=== PATIENT | female | born 1950 | race Caucasian/White ===

== ENCOUNTER → 2024-01-14 08:23 | Outpatient (REF) | payer MEDICARE, OTHER, SELFPAY ==
[2024-01-14 10:13] LABS: Tegretol (Carbamazepine) 13.2 ug/ml (4-12)
[2024-01-14 10:16] LABS: Blood Urea Nitrogen 15 mg/dl (7-17); Calcium 9.6 mg/dl (8.4-10.2); Carbon Dioxide 25 mmol/L (22-30); Chloride 101 mmol/L (98-107); Glucose 98 mg/dl (70-99); Potassium 3.9 mmol/L (3.5-5.1); Sodium 134 mmol/L (135-145); eGFR > 60.00
== END ==
LOC: HWLAB 08:23
PROVIDERS: ATTENDING PHYSICIAN Specialist; FAMILY PHYSICIAN Family Medicine
DX: G40.209 Localization-related (focal) (partial) symptomatic epilepsy and epileptic syndromes with complex partial seizures, not intractable, without status epilepticus (principal)
CPT/HCPCS: 36415; 80048; 80156

== ENCOUNTER 2024-03-27 17:28 | Emergency (ER) | payer MEDICARE, OTHER, SELFPAY ==
[2024-03-27 17:42] VITALS: BP 123/71
[2024-03-27 18:15] VITALS: BMI 17.8
--- NOTE | 2024-03-27 19:43 | ED.GENMED ---
History of Present Illness
General
Chief Complaint: DVT/Possible Blood Clot
Source: patient
Exam Limitations: none
Time Seen by Provider: 03/27/24 19:30
History of Present Illness
History of Present Illness:
See MDM
Past History
Past History
ED Past Medical History: HTN, Hypercholesterolemia, Seizures and Other (TMJ)
ED Past Surgical History:
Social History
Tobacco: Former smoker
Alcohol: None
Personal:
Living: with family
Family History
Family History: Negative Diabetes, Hypertension or CAD
Phy Exam
Physical Exam
Physical Exam:
See MDM
Course
Orders/Labs/Results
Orders:
Orders
03/27/24 19:42
Apixaban [Eliquis] 5 mg PO ONCE ONE
Vital Signs
Initial and Last Documented VS:
Initial Vital Signs
Temp Pulse Resp BP Pulse Ox
98.2 F 88 16 123/71 98
03/27/24 17:42 03/27/24 17:42 03/27/24 17:42 03/27/24 17:42 03/27/24 17:42
Last Documented Vital Signs
Temp Pulse Resp BP Pulse Ox
98.2 F 88 16 123/71 98
03/27/24 17:42 03/27/24 17:42 03/27/24 17:42 03/27/24 17:42 03/27/24 17:42
MDM/Problems Addressed
Differential Diagnosis Includes:
HPI and MDM Narrative:
73-year-old female presenting for evaluation of DVT. Extensive DVT was seen on outpatient ultrasound. Blood work was performed as an outpatient as well. at bedside states that the patient has memory issues and she has not really had any
complaints. He just had a hip replacement and he is the primary caregiver. He states that he was having more trouble getting around and she has been more sedentary recently. Patient denies chest pain, shortness of breath or leg pain
On exam, there is very minimal edema noted to her left leg. There is no evidence of cerulea dolens. No tenderness elicited to palpation. Distal pulses intact
Physical exam
General: Well appearing and non-toxic
HEENT: protecting airway
Neck: appears supple
CV: No evidence of cyanosis
Resp: No accessory muscle use
Abd: Non-distended
Extremities: Mild edema noted to left leg. No tenderness to palpation of calf or thigh. Distal pulses intact
Neuro: alert
Psych: Normal affect
Skin: Intact
Problems Addressed including Acute and Chronic Conditions affecting care:
1. Left leg DVT
Acuity: acute
Prognosis: stable
Details: No evidence of cerulea dolens. Will discuss case with vascular surgery
Updates
7:40 PM Case discussed with vascular surgery in regards to thrombolysis or not. Given that she has minimal to no complaint and there is no evidence of cerulea dolens, he indicated there is no significant benefit for thrombolysis as this would not
necessarily decrease the PE risk. I relayed this to patient and at bedside. They are very comfortable with starting Eliquis and following up with PCP. We discussed compression stockings. Patient given a coupon for first 30 days free
Eliquis. We discussed strict return precautions such as shortness of breath, chest pain or worsening swelling
Differential Diagnosis (but not limited to): DVT, calf strain
Drug therapy (if applicable): OTC meds, please see d/c instruction regarding Rx drugs
Amount and/or Complexity of Data Reviewed
Clinical info obtained from: Patient. states that the swelling was noted about 1 week ago. She has been more sedentary after his recent hip surgery
External data reviewed: Outpatient ultrasound lab work done today. Extensive DVT noted
Labs I independently reviewed (but not limited to): White blood cell count normal, creatinine normal
Radiology: Ultrasound report reviewed
Pulse Ox: not hypoxic
EKG independently reviewed: N/A
[employer]ic: N/A
Critical Care: N/A
Risk of Complication:
Social Determinants of health: Good social support
Discussed with other providers: vascular surgery
Escalation of Care includes Admit/Obs: After being observed in the Emergency Department, pt stable for discharge.
Occasional wrong word or 'sound a like' substitutions may have occurred due to the inherent limitations of voice recognition software. Read the chart carefully and recognize, using context, where substitutions have occurred.
*Critical Care Note
Total Time (30-74mins, 75-104mins- exclusive of procedures): Not Applicable
ED Attending Note
-
Portions of this chart may have been created with voice recognition software.� Occasional wrong word or��sound alike� substitutions may have occurred due to the inherent limitations of voice recognition software.
Discharge Plan
Departure
Patient Disposition: Home (Routine Discharge)
Date of Disposition: 03/27/24
Time of Disposition: 19:49
Patient with high blood pressure during this ER visit?: No
Discharge Problem:
DVT (deep venous thrombosis)
Instructions: Deep Vein Thrombosis (Blood Clots in the Legs) (DC)
Prescriptions:
New
Eliquis 5 mg tablet
5 mg PO BID Qty: 70 0RF
Rx Instructions:
10 mg BID for the first week. 5 mg BID after 1st week.
No Action
simvastatin 20 MG tablet
20 mg PO QPM
calcium carbonate-vitamin D3 1 EACH tablet
1 ea PO DAILY
losartan [Cozaar] 100 MG tablet
100 mg PO DAILY
carbamazepine [Tegretol XR] 400 MG tablet extended release 12 hr
400 mg PO BID Qty: 60 3RF
levetiracetam 250 MG tablet
1,000 mg PO BID 30 Days Qty: 240 2RF
Referrals:
Essie Ward DO [Family Provider] -
Activity Restrictions/Additional Instructions:
You have a large blood clot in your left leg. I started the first 4 weeks of a blood thinner called Vianey. Please call your doctor first thing tomorrow morning. Please return for any shortness of breath, chest pain or any worsening leg
swelling. Please start wearing a compression stocking in your left leg.
Since I am putting you on a blood thinner, please avoid NSAIDs such as Motrin, Advil, naproxen, aspirin, etc.
Please return for any worsening symptoms.
You may return at any time if you have further concerns.
Thank you for choosing [facility].
Interventions
Interventions:
*Risk Screen - Suicide Last Done: 03/27/24 18:15
*General Assessment Last Done: 03/27/24 18:15
*Neglect/Abuse Screening Last Done: 03/27/24 18:15
*ED COVID-19 Vaccine History Last Done: 03/27/24 17:42
ED- Cardiac Assessment Last Done: 03/27/24 18:15
ED- Pulmonary Assessment Last Done: 03/27/24 18:15
ED-Peripheral Vascular Assessment Last Done: 03/27/24 18:15
ED-Skin Assessment Last Done: 03/27/24 18:15
Discharge Date and Time
Print Language: MALAGASY
[2024-03-27] MEDS: ELIQUIS 5 MG PO ×2 (19:47→19:54)
[2024-03-27 20:05] VITALS: BP 137/89
== END 2024-03-27 20:05 | disposition home or self-care (01) ==
LOC: EMR 17:28
PROVIDERS: EMERGENCY PHYSICIAN Student in an Organized Health Care Education/Training Program; FAMILY PHYSICIAN Family Medicine
DX: I82.402 Acute embolism and thrombosis of unspecified deep veins of left lower extremity (principal); I10 Essential (primary) hypertension; E78.00 Pure hypercholesterolemia, unspecified; R56.9 Unspecified convulsions; M26.609 Unspecified temporomandibular joint disorder, unspecified side; Z87.891 Personal history of nicotine dependence
CPT/HCPCS: 99283; 36415; 73610; 80053; 83880; 85025; 93971

== ENCOUNTER → 2024-07-18 09:49 | Outpatient (REF) | payer MEDICARE, OTHER, SELFPAY ==
[2024-07-18 12:45] LABS: % Basophils 0.8 % (0-2); % Eosinophils 2.6 % (0-6); % Immature Granulocytes 0.3 % (0-0.5); % Lymphocytes 30.2 % (20.5-51.1); % Neutrophils 57.1 % (42.2-75.2); Absolute Eosinophils 0.1 10^3/uL (0-0.7); Absolute Lymphocytes 1.2 10^3/uL (1.2-3.4); Absolute Monocytes 0.4 10^3/uL (0.1-0.6); Absolute Neutrophils 2.2 10^3/uL (1.4-6.5); Hematocrit 35.6 % (37.0-47.0); Hemoglobin 12.3 g/dL (12.0-16.0); Mean Corp Hgb Conc. 34.6 g/dL (33.0-37.0); Mean Corpuscular Hgb 33.4 pg (27.0-31.0); Mean Corpuscular Volume 96.7 fL (81.0-99.0); Mean Platelet Volume 9.8 fL (7.4-10.4); Nucleated Red Blood Cells % 0 %; Platelet Count 245 10^3/uL (130-400); Red Blood Cell Count 3.68 10^6/uL (4.20-5.40); Red Cell Dist. Width 13.1 % (11.5-14.5); White Blood Cell Count 3.9 10^3/uL (4.8-10.8)
[2024-07-18 13:26] LABS: D-Dimer 0.37 ug/mlFEU (0.00-0.50)
== END ==
LOC: HWLAB 09:49
PROVIDERS: ATTENDING PHYSICIAN Internal Medicine Hematology & Oncology; FAMILY PHYSICIAN Family Medicine; REFERRING PHYSICIAN Specialist
DX: I82.401 Acute embolism and thrombosis of unspecified deep veins of right lower extremity (principal)
CPT/HCPCS: 36415; 85025; 85379

== ENCOUNTER 2024-07-28 21:21 | Inpatient (IN) | payer MEDICARE, OTHER, SELFPAY ==
[2024-07-28] VITALS (8 sets, daily range): BP systolic 111–145; BP diastolic 69–111
--- NOTE | 2024-07-28 16:57 | ED.GENMED ---
History of Present Illness
General
Chief Complaint: Fall
Source: spouse
Time Seen by Provider: 07/28/24 16:44
History of Present Illness
History of Present Illness:
74yoF with a history of seizures, dementia, hypertension, hyperlipidemia, and DVT presenting via EMS for evaluation after a fall. Patient has dementia at baseline and history is provided by at bedside. states patient fell in the
living room today around 9 AM. He denies any seizures or loss of consciousness. He does not think she hit her head. He was able to get her up less than a minute after the fall. Patient was unable to ambulate after the fall and seem to be having
pain in her right knee prompting him to call EMS. Mental status is currently at baseline. Patient had a recent right humeral fracture at the end of May 2024 which was treated with a sling. The sling was removed 1 week ago by [facility]. She was taken off of Eliquis 3 days ago by hematology.
Past History
Past History
ED Past Medical History: HTN, Hypercholesterolemia, Seizures and Other (TMJ)
ED Past Surgical History:
Social History
Tobacco: Former smoker
Alcohol: None
Personal:
Living: with family
Family History
Family History: Negative Diabetes, Hypertension or CAD
Phy Exam
General Physical Exam
General Presentation: no apparent distress
General age: appears stated age
General Skin: warm and dry
General Habitus: normal and elderly
General Mental: alert
ENT Exam
ENT Exam: normocephalic
Pulmonary Exam
Pulmonary Exam: lungs clear, no respiratory distress, no rales, chest non tender and no crackles
Gastrointestinal Exam
Gastrointestinal Exam: non tender, soft and non distended
Neurological Exam
Neurological Exam: alert
Elle Coma Scale
Eye Opening: Spontaneous
Verbal Response: Confused
Motor Response: Obeys Commands
GCS Total Score: 14
Musculoskeletal Exam
Musculoskeletal Exam: other (No deformity noted on exam. +Diffuse tenderness to R hip. Pain elicited with passive ROM of the R hip.)
Skin Exam
Skin Exam: normal color and warm/dry
Psychiatric Exam
Psychiatric Exam: normal mood/affect
Course
Orders/Labs/Results
Orders:
Orders
07/28/24 Dinner
Regular
At Your Request: Non-Participating
Does patient need a safe tray?: Yes
07/28/24 16:55
CT Cervical Spine W/o Iv Contr Urgent
Comment:
Reason For Exam: fall, dementia
CT Head W/o Iv Contrast Urgent
Comment:
Reason For Exam: fall
CR Elbow - Right Min 3 Views Urgent
Comment:
Reason For Exam: fall, pain
CR Femur - Right Min 2 Vw Urgent
Comment:
Reason For Exam: fall, R leg pain
CR Humerus - Right Min 2 View* Urgent
Comment:
Reason For Exam: fall, recent humeral fracture
CR Knee- Right 4 Or More View* Urgent
Comment:
Reason For Exam: fall, pain
CR Pelvis - 1 Or 2 Views Urgent
Comment:
Reason For Exam: fall, R hip pain
07/28/24 19:13
CT Pelvis W/o Iv Contrast Urgent
Comment:
Reason For Exam: Questionable R hip fracture on xray
07/28/24 20:30
Type+Screen Urgent
Complete Blood Count/With Diff Urgent
Comprehensive Metabolic Panel Urgent
07/28/24 21:00
ABO2 Urgent
BBK Wristband Number:
Associate notified that ABO2 has been ordered: [id number]
Date: 07/28/24
Time: 20:57
Ordnance Technician ID: [id number]
07/28/24 21:01
Admit/Transfer Patient As Directed
Co-Sign Provider:
Level of Care: Inpatient admission
Assign to:: Medical/Surgical
Physician / Group: hospitalist
Diagnosis: Fracture of right femoral neck closed
Reason for Hospitalization: femoral neck fracture
Expected length of stay greater than two midnights?: Yes
ELOS- Estimated Length of Stay in days: 2
I certify the patient meets the requirements for IP care: Yes
PRN Pain Medication Management As Directed
May give lesser potent ordered pain med per pt: Yes
preference::
Protocol:: Medication orders for pain may be administered in a
manner that supports deferring to patient preference
when the pt is:
- Requesting an ordered lesser potent pain medication.
Least to most potent pain medications are defined
as: acetaminophen < NSAID < tramadol < opioids
(morphine, oxycodone, hydromorphone).
- Requesting a lesser dose of the same medication IF
ORDERED.
- Requesting a less intrusive route of administration
if both routes are prescribed by the provider (PO <
IV).
07/28/24 21:02
Code Status As Directed
Resuscitation Status: Full Code
07/28/24 22:00
Atorvastatin [Lipitor] 20 mg PO HS
07/28/24 22:10
Docusate Sodium [Colace] 100 mg PO BID
Magnesium Hydroxide [Milk of Magnesia] 30 ml PO DAILYPRN PRN
Oxycodone [Roxicodone] 5 mg PO Q4HPRN PRN
Sennosides [Senokot] 17.2 mg PO BID
Tamsulosin [Flomax] 0.4 mg PO DAILYPRN PRN
07/28/24 22:10
Activity As Directed
Activity Level: With Assistance
Bladder Scan As Directed
Follow Bladder Retention/Intermittent Cath Algorithm?: Yes
PRN if no void in __ hours: 6
Comment: if not voiding 6 hrs upon arrival to floor, bladder scan & follow algorithm
Intake/ Output As Directed
Frequency: Per unit guidelines
Pneumatic Compression Sleeves As Directed
Type: Knee high
Straight Cath As Directed
Frequency: Per Retention Algorithm
Additional Instructions: straight cath as needed per acute urinary retention algorithm for 24 hrs
Additional Instructions: for bladder scan greater than 400 mL
Vital Signs As Directed
Frequency: Per unit guidelines
Pt Eval And Treat Routine
Activity Level: With Assistance
DX Deep Vein Thrombosis Video Routine
07/29/24 00:00
Acetaminophen [Tylenol] 650 mg PO Q4HWA
07/29/24 08:00
Carbamazepine Extended Release [Tegretol Xr (Extended Release)] 400 mg PO BID
Levetiracetam [Keppra] 1,000 mg PO DAILY
Losartan [Cozaar] 100 mg PO DAILY
Sertraline HCl [Zoloft] 50 mg PO DAILY
07/29/24 22:00
Levetiracetam [Keppra] 1,500 mg PO HS
Abnormal Lab Results
07/28/24
20:30
RBC 3.75 L 10^6/uL
(4.20-5.40)
Hct 34.7 L %
(37.0-47.0)
MCH 33.3 H pg
(27.0-31.0)
Absolute Lymphs (auto) 1.0 L 10^3/uL
(1.2-3.4)
Lymphocytes % 15.7 L %
(20.5-51.1)
Monocytes % 9.9 H %
(1.7-9.3)
Carbon Dioxide 18 L mmol/L
(22-30)
Glucose 109 H mg/dl
(70-99)
07/28/24 20:30
07/28/24 20:30
Vital Signs
Initial and Last Documented VS:
Initial Vital Signs
Pulse Resp Pulse Ox
95 24 99
07/28/24 15:06 07/28/24 15:06 07/28/24 15:06
Last Documented Vital Signs
Temp Pulse Resp BP Pulse Ox
98.9 F 116 22 145/88 96
07/28/24 22:31 07/28/24 22:31 07/28/24 22:31 07/28/24 22:31 07/28/24 22:31
MDM/Problems Addressed
Differential Diagnosis Includes:
74yoF here after a fall. Patient unable to ambulate after the fall. Hx of dementia and history is limited. Hx of recent humeral fracture. VSS. There is reproducible tenderness to the R hip and pain with passive ROM. RLE is neurovascularly intact.
Differential diagnosis includes but is not limited to: Fracture, contusion, sprain
Initial ED plan: Check right shoulder/humeral x-rays, right hip/femur/knee x-rays, and CT head/cervical spine.
*Critical Care Note
Total Time (30-74mins, 75-104mins- exclusive of procedures): Not Applicable
Update Note
Update Note:
Hip x-rays show a questionable fracture. CT pelvis was obtained which confirms a nondisplaced right femoral neck fracture with minor impaction. Patient admitted for further evaluation and management. updated at bedside.
ED Attending Note
-
Portions of this chart may have been created with voice recognition software.� Occasional wrong word or��sound alike� substitutions may have occurred due to the inherent limitations of voice recognition software.
Discharge Plan
Departure
Patient Disposition: Admit
Date of Disposition: 07/28/24
Time of Disposition: 20:23
Presentation/result/management discussed w/ accepting MD/DO: Hospitalist
Discharge Problem:
Fracture of femoral neck, right, closed
Interventions
Interventions:
*Risk Screen - Suicide Last Done: 07/28/24 15:12
*General Assessment Last Done: 07/28/24 15:12
*Neglect/Abuse Screening Last Done: 07/28/24 15:12
ED- Fall Risk Assessment Last Done: 07/28/24 21:54
*ED COVID-19 Vaccine History Last Done: 07/28/24 15:12
*Nursing Disposition Last Done: 07/28/24 21:54
ED-Musculoskeletal Assessment Last Done: 07/28/24 15:18
ED- Neurological Assessment Last Done: 07/28/24 15:18
ED-Skin Assessment Last Done: 07/28/24 15:18
Discharge Date and Time
Discharge Date/Time: 07/28/24 21:56
[2024-07-28 20:36] LABS: % Basophils 0.3 % (0-2); % Eosinophils 0.2 % (0-6); % Immature Granulocytes 0.5 % (0-0.5); % Lymphocytes 15.7 % (20.5-51.1); % Monocytes 9.9 % (1.7-9.3); % Neutrophils 73.4 % (42.2-75.2); Absolute Monocytes 0.6 10^3/uL (0.1-0.6); Absolute Neutrophils 4.5 10^3/uL (1.4-6.5); Hematocrit 34.7 % (37.0-47.0); Hemoglobin 12.5 g/dL (12.0-16.0); Mean Corpuscular Hgb 33.3 pg (27.0-31.0); Mean Corpuscular Volume 92.5 fL (81.0-99.0); Mean Platelet Volume 9.2 fL (7.4-10.4); Nucleated Red Blood Cells % 0 %; Platelet Count 211 10^3/uL (130-400); Red Blood Cell Count 3.75 10^6/uL (4.20-5.40); Red Cell Dist. Width 12.9 % (11.5-14.5); White Blood Cell Count 6.1 10^3/uL (4.8-10.8)
--- NOTE | 2024-07-28 21:02 | HPS.HSE ---
Family Physician
-
Family Physician: Essie Ward
Chief Complaint
-
Fall
History of Present Illness
Is a 74-year-old female with past medical history of dementia, tremors, hypertension, hyperlipidemia, history of seizure disorder on antiepileptic drugs and a prior DVT who presents to the emergency department following a mechanical fall at home.
Spouse was at bedside and was able to provide history as patient cannot provide any history. The patient had a fall at around 9 AM in the living room. Is seen had falls before and has seen multiple seizure episode. Spouse reported that there was
no evidence by him of any seizures. He was able to get her up immediately after the fall but patient was unable to ambulate thereafter and seem to be having pain on the right side. EMS was called.
Patient had no change in mental status. She had prior or fall and a right humeral fracture at the end of May status post treatment with a sling and sling was DC'd at [facility] orthopedic 1 week ago. Eliquis was discontinued 3 days ago by
hematology.
In the emergency department she was afebrile, blood pressure was 113/90 with a pulse of 108 oxygen saturation of 90% on room air. Hemoglobin was 12.5 and unchanged. Chemistries are pending. She had multiple x-rays and the findings were only seen
on CT of the pelvis which showed a nondisplaced femoral neck fracture on the right with small bilateral hemarthrosis. Minor impaction.
Medical History
Past Medical History
Past Medical History: Reports Dementia, HTN and Other (Seizures)
Additional Past Medical History:
H/O DVT now off AC
Past Surgical History: Reports
Social History
Unable to obtain full social history at this time due to: Dementia
Tobacco: Non-smoker
Alcohol: None
Drug: None
Personal:
Living: With Family
Employment: Retired
Family History
Family History: Not pertinent
Allergies / Home Medications
Allergies reflects when Allergies were last updated in [employer]
Home Medications with original date entered in [employer]
Allergy/Medication List:
Allergies
Allergy/AdvReac Type Severity Reaction Status Date / Time
No Known Allergies Allergy Verified 03/27/24 17:43
Home Medications
losartan 100 mg tablet (Cozaar) 100 mg PO DAILY 12/16/21
carbamazepine 400 mg tablet,extended release,12 hr (Tegretol XR) 400 mg PO BID #60 tabs 12/18/21
atorvastatin 20 mg tablet 20 mg PO HS 07/28/24
levetiracetam 1,000 mg tablet 1,000 mg PO DAILY 07/28/24
levetiracetam 1,000 mg tablet 1,500 mg PO HS 07/28/24
sertraline 50 mg tablet 50 mg PO DAILY 07/28/24
Review of Systems
-
History Source: Family
Constitutional: Reports No Symptoms
EENT: Reports No Symptoms
Respiratory: Reports No Symptoms
Cardiac: Reports No Symptoms
Abdomen/GI: Reports No Symptoms
: Reports No Symptoms
Musculoskeletal: Reports Joint Pain
Skin: Reports No Symptoms
Neurological: Reports No Symptoms
Endocrine: Reports No Symptoms
Hematologic/Lymphatic: Reports No Symptoms
Psych: Reports No Symptoms
Physical Exam
Vital Signs
Vital Signs
Temp Pulse Resp BP Pulse Ox
97.8 F 101 18 113/92 99
07/28/24 15:12 07/28/24 20:32 07/28/24 20:32 07/28/24 20:32 07/28/24 20:32
Physical Exam
General: No Apparent Distress
HEENT: NormoCephalic, Anicteric, Moist mucous membranes and Atraumatic
Respiratory: Clear
Cardiac: S1/S2 and Regular Rhythm
Breast: Deferred by me
GI: Soft, Non Tender, Non Distended and Normal Bowel Sounds
Rectal: Deferred by Provider
Genito-urinary: Deferred by me
Musculoskeletal: No Clubbing, No Cyanosis and No Edema
Skin: Warm
Neuro: Awake, Alert and Nonfocal/grossly intact
Hematologic/Lymphatic: No Lymphadenopathy
Psych: Calm
Laboratory Results
-
07/28/24 20:30
Data Reviewed
-
Diagnostic Radiology: Image Personally Visualized and interpreted and Report Reviewed by me
CT Scan: Report Reviewed by me
Lab Data: Labs Reviewed by me
Old Records: Reviewed
Impression/Plan
-
IMPRESSION:
Mechanical fall at home. No LOC. No seizure like activity. Did not strike head. Off Eliquis for DVT 3 days ago. Currently with normal mental status. Vitals, CBC and exam mostly unremarkable. Non-displaced R femoral neck fracture with minor
impaction.
PLAN:
1. Hip Fracture
- admit to med surg
- pain control, acetaminophen q 6 scheduled per protocol.
- if uncontrolled, consider RTC tramadol as patient cannot ask for pain meds
- DVT PPX with lovenox sq
- contacted Ortho. No specific recommendations for now, f/u.
- PT OT evaluation.
2. Seizures
- continuing Keppra 1000 am, 1500 pm
- Carbamazepine 400 bid
3. HTN
- continue losartan 100
Code Status - DNR
[2024-07-28 21:03] LABS: ALT (SGPT) 20 U/L (0-35); AST (SGOT) 26 U/L (14-36); Albumin 4.5 g/dl (3.5-5.0); Alkaline Phosphatase 101 U/L (38-126); Blood Urea Nitrogen 17 mg/dl (7-17); Calcium 9.5 mg/dl (8.4-10.2); Carbon Dioxide 18 mmol/L (22-30); Chloride 103 mmol/L (98-107); Glucose 109 mg/dl (70-99); Potassium 3.9 mmol/L (3.5-5.1); Sodium 137 mmol/L (135-145); Total Bilirubin 0.6 mg/dl (0.2-1.3); Total Protein 7.4 g/dl (6.3-8.2); eGFR > 60.00
[2024-07-28] MEDS: KEPPRA 1500 MG PO (22:21)
[2024-07-28] MEDS: TYLENOL 650 MG PO (22:21)
[2024-07-28] MEDS: LIPITOR 20 MG PO (22:21)
[2024-07-28] MEDS: COLACE 100 MG PO (22:42)
[2024-07-28] MEDS: SENOKOT 17.2 MG PO (22:42)
[2024-07-28] MEDS: TEGRETOL XR (EXTENDED RELEASE) 400 MG PO (22:42)
--- NOTE | 2024-07-28 22:49 | PTCARENOTE ---
22:00 pt rec'vd from ER via stretcher, pt alert to name, unable to give history, Yasmeen documentation reviewed with pt, pt denies having a , not aware of incident. Oriented to unit verbal and demonstration.
[2024-07-29] MEDS: TYLENOL 650 MG PO ×5 (00:14→17:27)
[2024-07-29 06:00] VITALS: BMI 18.0
[2024-07-29 07:15] VITALS: BP 121/70
[2024-07-29] MEDS: COLACE 100 MG PO (07:40)
[2024-07-29] MEDS: COZAAR 100 MG PO (07:40)
[2024-07-29] MEDS: KEPPRA 1000 MG PO (07:41)
[2024-07-29] MEDS: ZOLOFT 50 MG PO (07:41)
[2024-07-29] MEDS: SENOKOT 17.2 MG PO (07:42)
--- NOTE | 2024-07-29 11:19 | CON.ORTHO ---
Consultation
-
Date/Time Consultation Requested: 07/28/24 2210
Date/Time Consultation Performed: 07/29/24 0900
Requesting Provider: Dr. Reid Houston
Performing Provider: BRENTON Goddard, Dr. Zafar Puente
Reason for Consultation: Right hip fracture
Consultation - Orthopedics
History
74-year-old female with a significant past medical history of advanced dementia and seizure disorder as well as previous DVT in March 2024 presenting to [facility] after a reported mechanical fall at home. Report is from documentation and
spouse given patient's baseline dementia status. She has pain surrounding the right hip area reported and imaging confirms an impacted right femoral neck fracture. Of note she was seen both at hematology with discontinuation of her Eliquis on
Wednesday for her DVT and was seen by orthopedics Dr. Mena for outpatient management of her right proximal humerus fracture for which she has discontinued her sling per her . Patient can be ambulatory with assist devices with guidance at
baseline
Allergies / Home Medications
Allergy/AdvReac Type Severity Reaction Status Date / Time
No Known Allergies Allergy Verified 03/27/24 17:43
�Medication �Instructions �Recorded
losartan 100 mg tablet (Cozaar) 100 mg PO DAILY 12/16/21
carbamazepine 400 mg 400 mg PO BID #60 tabs 12/18/21
tablet,extended release,12 hr
(Tegretol XR)
atorvastatin 20 mg tablet 20 mg PO HS 07/28/24
levetiracetam 1,000 mg tablet 1,000 mg PO DAILY 07/28/24
levetiracetam 1,000 mg tablet 1,500 mg PO HS 07/28/24
sertraline 50 mg tablet 50 mg PO DAILY 07/28/24
Past Medical History: Reports Dementia, HTN and Other (Seizures)
Additional Past Medical History:
H/O DVT now off AC
Past Surgical History: Reports
Social History
Unable to obtain full social history at this time due to: Dementia
Tobacco: Non-smoker
Alcohol: None
Drug: None
Personal:
Living: With Family
Employment: Retired
Family History
Family History: Not pertinent
Vital Signs / Lab Results
Temp Pulse Resp BP Pulse Ox
97.5 F 82 16 121/70 96
07/29/24 07:15 07/29/24 07:40 07/29/24 07:15 07/29/24 07:40 07/29/24 07:15
imaging:X-rays taken of the right hip and CT performed demonstrate a nondisplaced impacted right femoral neck fracture
Physical exam: Patient mostly asleep on examination. She is guarding of the right hip with palpation and demonstrate spontaneous movement of the right lower extremity
07/28/24 20:30
07/28/24 20:30
Assessment / Plan
74-year-old female with significant past medical history of seizures disorder, advanced dementia, and DVT in March 2024 with mechanical fall with impacted right femoral neck fracture.
Injury was discussed with the spouse given the patient's baseline dementia regarding their injury. The injury and respective operative and nonoperative interventions reviewed with respective family member to include the risks and benefits
rehabilitation and prognosis for each. As the patient is established with [facility] was further discussed that they like to continue with [facility] orthopedics; the underwent a successful total hip arthroplasty with Dr. Puente and requested
him to perform the surgery. The treatment and operative technique, postoperative follow-up, postoperative rehabilitation and surgical prognosis was reviewed in detail. After thorough discussion of potential treatment options the patient and
respective family members wish to proceed with operative intervention. Consent was obtained over the phone through the spouse/POA and placed into chart.
-Plan for OR 30 July 2024
-Consider DVT prophylaxis today of aspirin or heparin prior to OR tomorrow with history of DVT along with SCD devices
-Nonweightbearing to right lower extremity
-N.p.o. at midnight
-Antibiotics on-call to operating room as ordered
-Irrigation products on order
It was further discussed with the patient that the injury sustained is considered a fragility fracture which occurs in the setting of osteoporosis. Discussed with the patient the significance of this as there is an increased risk of further
fragility fractures in the future. Recommend when discharged and in the nearby future for a follow-up with her primary care provider and discussion of management of osteoporosis and mitigating fall risk is much as possible in the future.
--- NOTE | 2024-07-29 13:15 | W.PN.HOSP.TC ---
Today's Communication/Plan
-
await EKG
OR tomorrow
Assessment / Plan
Assessment / Plan
Assessment:
Traumatic nondisplaced fracture of the right femoral neck with minor impaction, also associated with osteoporosis
- continue pain control
- Ortho consulted; NPO p [facility] OR Wednesday.
- pending EKG to evaluate pre-op assessment.
Hx of Seizures
- continue Keppra/Tegretol XR
Essential HTN
- continue ARB
DVT ppx: SCDs
Code: DNR/DNI
Anticipated Discharge: > 48 hours
Subjective/Interval History
-
Date of Service: July 29, 2024
no complaints
Objective Data
-
Vital Signs:
Vital Signs
Temp Pulse Resp BP Pulse Ox
97.5 F 82 16 121/70 96
07/29/24 07:15 07/29/24 07:40 07/29/24 07:15 07/29/24 07:40 07/29/24 07:15
I&O
07/28/24 07/29/24 07/30/24
06:59 06:59 06:59
Intake Total 960 / 960
Balance 960 / 960
Physical Exam
-
General: No Apparent Distress
HEENT: Normocephalic and Atraumatic
Respiratory: Negative Wheezes
Cardiac: Regular Rhythm and S1/S2
GI: Soft
Genito-urinary: No Costovertebral Tender
Neuro: AO x 3
Hematologic / Lymphatic: No Lymphadenopathy
Psych: Calm
Data Reviewed
-
Total Time Spent with Patient (in minutes): 42
Labs: Labs Reviewed by me
[2024-07-29] MEDS: TEGRETOL XR (EXTENDED RELEASE) 400 MG PO ×2 (14:55→20:10)
[2024-07-29 15:25] VITALS: BP 101/76
--- NOTE | 2024-07-29 15:37 | CM ---
Met with pt and at bedside
Pt has dementia, answered questions
Pt lives with her in a 2 story town house; 20 steps to enter, 12 steps to 2nd fl. Have 1/2 bath on FF
Pt requirers assist with ADL's, cues/prompts with feeding, ambulates with rolling walker
DME - wheel chair, rolling walker, raised toilet seat, toilet rails
SNF - no past hx
HH - [facility] in past
PCP - Essie Ward
Pharm - [facility] on [address]
Panned for OR tomorrow for R fractured hip
PT/OT eval pend - post-op
Plan - anticipate SNF when medically ready - will follow for needs
[2024-07-29 17:55] VITALS: BMI 18.0
[2024-07-29] MEDS: LIPITOR 20 MG PO (20:10)
[2024-07-29] MEDS: SENOKOT PO (21:16)
[2024-07-29] MEDS: COLACE PO (21:16)
[2024-07-29] MEDS: TYLENOL PO (21:17)
[2024-07-29] MEDS: KEPPRA 1500 MG PO (22:10)
[2024-07-29 23:06] VITALS: BP 116/68
[2024-07-30] VITALS (15 sets, daily range): BP systolic 99–125; BP diastolic 65–85; PULSE 106; BMI 17.4
[2024-07-30] MEDS: TYLENOL 650 MG PO ×5 (00:32→23:05)
[2024-07-30 05:18] LABS: Hematocrit 37.2 % (37.0-47.0); Hemoglobin 12.7 g/dL (12.0-16.0); Mean Corp Hgb Conc. 34.1 g/dL (33.0-37.0); Mean Corpuscular Hgb 33.1 pg (27.0-31.0); Mean Corpuscular Volume 96.9 fL (81.0-99.0); Mean Platelet Volume 9.7 fL (7.4-10.4); Platelet Count 199 10^3/uL (130-400); Red Blood Cell Count 3.84 10^6/uL (4.20-5.40); Red Cell Dist. Width 12.8 % (11.5-14.5); White Blood Cell Count 5.1 10^3/uL (4.8-10.8)
[2024-07-30 05:35] LABS: Blood Urea Nitrogen 6 mg/dl (7-17); Carbon Dioxide 21 mmol/L (22-30); Chloride 101 mmol/L (98-107); Estimated Creatinine Clearance 63 ml/min; Glucose 91 mg/dl (70-99); Potassium 3.7 mmol/L (3.5-5.1); Sodium 136 mmol/L (135-145); eGFR > 60.00
[2024-07-30] MEDS: KEPPRA 1000 MG PO (08:00)
[2024-07-30] MEDS: TEGRETOL XR (EXTENDED RELEASE) 400 MG PO ×2 (08:00→20:12)
--- NOTE | 2024-07-30 09:29 | W.PN.UPDATE ---
Update Note
Progress Note Update
74-year-old female status post right cemented hip hemiarthroplasty with Dr. Puente
-Weightbearing as tolerated with posterior hip precautions; will hold on abductor pillow at this time
-PT/OT as tolerated with baseline dementia
-Postoperative antibiotics as ordered
-DVT PPx: ASA 325 mg daily unless recommended otherwise per primary
-Diet per primary
-Pain regimen on board; received general anesthesia at baseline status; local anesthetic used intraoperatively
-[place] for wound closure with overlying Aquacel.
-Orthopedic surgery will continue to follow
[2024-07-30] MEDS: COLACE PO (10:15)
[2024-07-30] MEDS: COZAAR PO (10:15)
[2024-07-30] MEDS: SENOKOT PO (10:15)
--- NOTE | 2024-07-30 10:25 | CM ---
Addendum entered by Caitie Valencia 07/30/24 14:29:
Obtained SNF choices from pts . [facility] choice and [facility]
Referral sent in [facility]
Plan - anticipate SNF when medically ready for discharge
Original Note:
To OR today for repair of hip fx
PT/OT eval pend post op
Family given SNF choice list
Plan - anticipate SNF when medically ready for discharge
[2024-07-30] MEDS: ZOLOFT PO (10:43)
[2024-07-30] MEDS: TYLENOL PO ×2 (10:43→13:06)
--- NOTE | 2024-07-30 11:06 | PTCARENOTE ---
return from sx 1100am EBL 15mls, LMA with a local Right hemiarthroplasty. Primaseal with jonathan drainage. O2 @ 2l. SCD. seizure pads on, bed low, call delaeny in reach. verified that [address] Puente took to OR with him were given, not
scanned out. Nurse called to verify.
--- NOTE | 2024-07-30 14:10 | W.PN.HOSP.TC ---
Today's Communication/Plan
-
pt/ot
ST evaluation
dispo planning from tomorrow
Assessment / Plan
Assessment / Plan
Assessment:
Traumatic nondisplaced fracture of the right femoral neck with minor impaction, also associated with osteoporosis
s/p Right hip hemiarthroplasty
- Patient is POD # 0 and still sedated during round from [place]
-Resuming regular diet once patient more awake, reported problem with pocketing food. Speech therapy evaluation ordered
-continue pain control
-PT/OT evaluation tomorrow
Hx of Seizures
- continue Keppra/Tegretol XR
-Reported episode of dysmetrias back in questionable episode few months back
-Follows up with Dr. Worthington
Essential HTN
- continue ARB
DVT ppx: SCDs
Code: DNR/DNI
Care plan discussed with patient spouse at bedside
Anticipated Discharge: Within 24 hours
Subjective/Interval History
-
Date of Service: July 30, 2024
somnolent post operatively
at bedside
Objective Data
-
Labs:
Laboratory Results
07/30/24
04:16
WBC 5.1
Hgb 12.7
Hct 37.2
Plt Count 199
Sodium 136
Potassium 3.7
Chloride 101
Carbon Dioxide 21 L
BUN 6 L
Creatinine 0.5 L
Glucose 91
Calcium 9.0
Vital Signs:
Vital Signs
Temp Pulse Resp BP Pulse Ox
97.6 F 108 12 99/71 92
07/30/24 12:00 07/30/24 12:00 07/30/24 12:00 07/30/24 12:00 07/30/24 12:00
I&O
07/29/24 07/30/24 07/31/24
06:59 06:59 06:59
Intake Total 960 / 960 480 / 480 100 / 100
Balance 960 / 960 480 / 480 100 / 100
Review of Systems
-
Unable to obtain full review of systems at this time due to: Acuity
Physical Exam
-
General: Comfortable
HEENT: Oxygen
Respiratory: Clear to Auscultation
Cardiac: Rub
GI: Soft, Nontender and Normal Bowel Sounds
Musculoskeletal: Other (Right hip dressing in place)
Neuro: Other (somnolent, waking up on verbal cue)
--- NOTE | 2024-07-30 15:29 | PTOTSP ---
ST Consult
Chart reviewed & spoke with MD & RN. Pt is post-op and reportedly pocketing foods and meds due to insufficient alertness/reduced mental status. Pt not appropriate for HEAVY EQUIPMENT SALES MANAGER evaluation at this time - will defer until tomorrow. Would recommend keeping
pt STRICT NPO with meds crushed in puree at RN discretion until formal HEAVY EQUIPMENT SALES MANAGER evaluation can be completed.
[2024-07-30] MEDS: ANCEF 5 IV ×2 (16:33→23:05)
[2024-07-30] MEDS: ASPIRIN 325 MG PO (18:21)
--- NOTE | 2024-07-30 19:38 | PTCARENOTE ---
1755: no UOP since post-op BS 411mls multi attempts made to (4) to place Friend feels like it prolapses as it slides in. pt is not combative but very resistant and tense. New Primaseal placed d/t drainage.
[2024-07-30] MEDS: COLACE 100 MG PO (20:12)
[2024-07-30] MEDS: SENOKOT 17.2 MG PO (20:12)
[2024-07-30] MEDS: DILAUDID 0.25 MG IV (20:15)
[2024-07-30 21:10] LABS: Urine Albumin Trace (Neg - Trace); Urine Bilirubin Negative (Negative); Urine Character Slightly Cloudy (Clear); Urine Color Amber; Urine Glucose Negative (Negative); Urine Ketone Trace (Negative); Urine Leukocyte Trace (Negative); Urine Nitrite Positive (Negative); Urine Occult Blood 4+ (Negative); Urine Urobilinogen Negative (Neg - 1+)
[2024-07-30 21:18] LABS: Urine Bacteria Many (Negative); Urine Squamous Cell 21-25 /LPF (Few)
[2024-07-30] MEDS: KEPPRA 1500 MG PO (22:19)
[2024-07-30] MEDS: LIPITOR 20 MG PO (22:20)
--- NOTE | 2024-07-30 22:28 | W.PN.UPDATE ---
Update Note
Progress Note Update
Reported by the nursing staff, patient is retaining urine over 400cc per bladder scan. Multiple attempts per nursing staff with no success for straight cath or multani insertion.
Patient assessed, seems in pain. One time dose of 0.25 IV Dilaudid was given. Due to difficulty of straight cath, Multani cath was placed by this provider. Urine is cloudy and sample was sent for UA.
Abnormal urinalysis result received, urine culture is pending. Patient currently on IV Cefazolin.
[2024-07-31] VITALS (7 sets, daily range): BP systolic 102–118; BP diastolic 65–74; PULSE 99–103; O2SAT 98
[2024-07-31] MEDS: TYLENOL 650 MG PO ×2 (03:01→23:19)
[2024-07-31 05:44] LABS: Hematocrit 32.8 % (37.0-47.0); Hemoglobin 11.2 g/dL (12.0-16.0); Mean Corp Hgb Conc. 34.1 g/dL (33.0-37.0); Mean Corpuscular Hgb 33.3 pg (27.0-31.0); Mean Corpuscular Volume 97.6 fL (81.0-99.0); Mean Platelet Volume 9.7 fL (7.4-10.4); Platelet Count 171 10^3/uL (130-400); Red Blood Cell Count 3.36 10^6/uL (4.20-5.40); Red Cell Dist. Width 12.7 % (11.5-14.5); White Blood Cell Count 6.8 10^3/uL (4.8-10.8)
[2024-07-31 06:05] LABS: Blood Urea Nitrogen 12 mg/dl (7-17); Calcium 8.8 mg/dl (8.4-10.2); Carbon Dioxide 22 mmol/L (22-30); Chloride 99 mmol/L (98-107); Estimated Creatinine Clearance 52 ml/min; Glucose 103 mg/dl (70-99); Potassium 3.5 mmol/L (3.5-5.1); Sodium 135 mmol/L (135-145); eGFR > 60.00
[2024-07-31] MEDS: KEPPRA PO ×3 (08:29→22:22)
--- NOTE | 2024-07-31 09:00 | PTCARENOTE ---
Patient presently refusing oral intake and PO medications including keppra and tegretol; Dr. Mora made aware; Per attending physician continue to attempt to give medications to patient; Seizure pads placed on the side rails of the bed; Care ongoing
[2024-07-31] MEDS: COLACE PO ×2 (09:33→20:12)
[2024-07-31] MEDS: SENOKOT PO ×2 (09:56→20:12)
[2024-07-31] MEDS: TEGRETOL XR (EXTENDED RELEASE) 400 MG PO ×2 (10:14→20:12)
[2024-07-31] MEDS: KEPPRA 1000 MG PO (10:15)
[2024-07-31] MEDS: COZAAR PO (10:18)
[2024-07-31] MEDS: ZOLOFT PO (10:18)
[2024-07-31] MEDS: ASPIRIN PO (10:18)
[2024-07-31] MEDS: TYLENOL PO ×4 (10:18→20:15)
--- NOTE | 2024-07-31 10:50 | W.PN.ORTHO ---
Today's Communication / Plan
-
Appreciate the hospitalist team, continue treatment
Dispo likely SNF, appreciate CM
Continue WBAT B/L LEs on walker/assistance
PT/OT, THPs x 6 weeks
ASA 325mg daily 4 weeks
Avoid narcotic induced delirium
Dressing to remain 7-10 days
[place] out at 2 weeks (office of SNF)
If bib out at SNF outpatient Ortho follow up 4 weeks
Assessment
.
Distal Motor Intact: Yes
Dressing:
Clean, dry and intact. Aquacel in place right thigh
Assessment:
POD#1 Right hip Alberto
Plan
.
Surgery / Date: Right hip Alberto/Aug 13 ([facility])
DVT Prophylaxis: Aspirin
Activity:
Out of bed. WBAT B/L LEs on walker/assistance
PT/OT, THPs x 6 weeks
Discharge Plan: Other (likely SNF, per CM)
Subjective
.
.:
Patient resting comfortably in bed. Did not respond to verbal stim, therefore DND
Vital Signs and Labs
.
Vital Signs and Labs:
Lab Results
07/31/24 04:19
07/31/24 04:19
Temp Pulse Resp BP Pulse Ox
98.5 F 98 18 113/68 97
07/31/24 08:00 07/31/24 08:00 07/31/24 08:00 07/31/24 08:00 07/31/24 08:00
--- NOTE | 2024-07-31 11:11 | PN.CDI ---
CDI
- -
CDI:
Physician Documentation Request
Admit Date: 07/28/24 21:21
Dear Doctor Morgan,
Patient admitted with fracture of the right femoral neck.
07/28 Nursing skin assessment, 'Stage 1 sacral pressure injury, POA.'
Physician documentation of the type and location of wounds is required for compliant documentation. Based on the above clinical findings and your assessment, please provide the following in your progress note:
Type (etiology) of ulcer/wound:
- Pressure (decubitus) ulcer
- Other
- Unable to determine
For a pressure ulcer, please also include the stage* of the ulcer:
- Stage 1 - Skin intact, non-blanchable redness
- Stage 2 - Partial thickness loss of dermis, includes intact or open blister
- Stage 3 - Full thickness tissue not including bone, tendon or muscle
- Stage 4 - Full thickness tissue loss, including exposed bone, tendon or muscle
- Unstageable - Full thickness loss in which the base of the ulcer is covered by slough (yellow, townsend, gilmore, green or brown) and/or eschar (townsend, brown or black) in the wound bed.
- Unable to determine
Use of terms such as suspected, likely, concern for, or probable (associated with a specific diagnosis that is being evaluated, monitored, or treated as if it exists) are acceptable and can be coded in the inpatient setting, when documented at the
time of discharge.
Thank you,
Amara LOPEZ,RN,CCDS
CDI Specialist
Available via tiger text
Please use your independent medical judgment in providing your response.
*Source: National Pressure Ulcer Advisory Panel (NPUAP)
[2024-07-31] MEDS: TORADOL 15 MG IV ×2 (12:01→22:06)
[2024-07-31] MEDS: ROCEPHIN 1000 MG IV (12:01)
[2024-07-31] MEDS: STERILE WATER FOR INJECTION 10 ML IV (12:01)
[2024-07-31] MEDS: D5LR 1000 IV (12:54)
--- NOTE | 2024-07-31 14:04 | W.PN.HOSP.TC ---
Today's Communication/Plan
-
see note
Assessment / Plan
Assessment / Plan
Traumatic nondisplaced fracture of the right femoral neck with minor impaction, also associated with osteoporosis
s/p Right hip hemiarthroplasty
- Patient is POD # 1
-continue pain control
-PT/OT eval and eventual rehab
Dysphagia
- failed ST eval and patient pockets food/pills
- NPO with IVF for today
- will need re-evaluation by ST tomorrow
Hx of Seizures
- continue Keppra/Tegretol XR
-Reported episode of dysmetrias back in questionable episode few months back
-Follows up with Dr. Worthington
Essential HTN
- continue ARB
DVT ppx: SCDs
Code: DNR/DNI
Goal of care discussed with patient spouse regarding dysphagia. Discussed potential need of comfort feed with understanding aspiration risk. Not a good candidate for tube feed and patient mentioned spouse would not have wanted that anyhow. Plan
for patient to be reevaluated by speech therapy tomorrow to see if patient would able to tolerate food. Currently patient to be maintained nothing by mouth and IV fluid for hydration. Spouse in agreement.
Total time spent : 52 mins
Anticipated Discharge: 24 - 48 hours
Subjective/Interval History
-
Date of Service: July 31, 2024
awake and pleasantly disoriented
decreased oral intake
Objective Data
-
Labs:
Laboratory Results
07/31/24
04:19
WBC 6.8
Hgb 11.2 L
Hct 32.8 L
Plt Count 171
Sodium 135
Potassium 3.5
Chloride 99
Carbon Dioxide 22
BUN 12
Creatinine 0.7
Glucose 103 H
Calcium 8.8
Vital Signs:
Vital Signs
Temp Pulse Resp BP Pulse Ox
98.4 F 103 17 102/72 98
07/31/24 12:50 07/31/24 12:50 07/31/24 12:50 07/31/24 12:50 07/31/24 12:50
I&O
07/30/24 07/31/24 08/01/24
06:59 06:59 06:59
Intake Total 480 / 480 820 / 820
Output Total 350 / 350
Balance 480 / 480 470 / 470
Review of Systems
-
Unable to obtain full review of systems at this time due to: Dementia
Physical Exam
-
General: Comfortable
HEENT: Oxygen
Respiratory: Clear to Auscultation
Cardiac: Rub
GI: Soft, Nontender and Normal Bowel Sounds
Musculoskeletal: Other (Right hip dressing in place)
Neuro: Awake and No Motor Deficits; Negative Oriented
--- NOTE | 2024-07-31 14:08 | PTOTSP ---
Speech Therapy Evaluation:
Pt presents with clinical signs concerning for oropharyngeal dysphagia including oral holding, pocketing, decreased oral coordination, and consistent throat clearing and/or coughing with PO. Of note, pt consistently throat clearing in the absence of
PO, therefore difficult to discern if aspiration related. Pt remains at an increased risk of aspiration due to hx of Dementia, current level of mentation, and decreased comprehension/command following to follow safe swallowing strategies. Pt deemed
unsafe for PO intake at this time.
Recommend:
1. Strict NPO
2. Medications via non oral route
3. Oral care 3x/day
4. Continued ST at acute care level to re-assess candidacy for initiation of oral diet and determine need for VSE.
ELECTRICAL AUTOMATION ENGINEER received TT from MD, in which MD talked to and discussed GOC. Pt's understands risk of aspiration and related complications. If offering PO for comfort, would recommend puree and thin liquids with careful hand vs. spoon feeding
based on pt's cues/presentation.
--- NOTE | 2024-07-31 15:04 | CM ---
Chart reviewed
NPO
Seen by speech - Dysphagia
Speech to reevaluate tomorrow
For SNF - spoke with pts - prefers [facility]
Spoke with Ann - can accept when ready
Plan - transfer to [facility] when medically ready
[2024-07-31] MEDS: LIPITOR PO (22:24)
[2024-07-31] MEDS: KEPPRA 1500 MG PO (23:14)
[2024-08-01] MEDS: D5LR 1000 IV (02:36)
[2024-08-01] MEDS: TYLENOL PO (04:32)
[2024-08-01 05:33] LABS: Hematocrit 28.9 % (37.0-47.0); Mean Corp Hgb Conc. 34.6 g/dL (33.0-37.0); Mean Corpuscular Hgb 33.4 pg (27.0-31.0); Mean Corpuscular Volume 96.7 fL (81.0-99.0); Mean Platelet Volume 9.8 fL (7.4-10.4); Platelet Count 151 10^3/uL (130-400); Red Blood Cell Count 2.99 10^6/uL (4.20-5.40); Red Cell Dist. Width 12.7 % (11.5-14.5); White Blood Cell Count 4.9 10^3/uL (4.8-10.8)
[2024-08-01 05:59] LABS: Blood Urea Nitrogen 13 mg/dl (7-17); Calcium 8.3 mg/dl (8.4-10.2); Carbon Dioxide 23 mmol/L (22-30); Chloride 103 mmol/L (98-107); Estimated Creatinine Clearance 61 ml/min; Glucose 100 mg/dl (70-99); Potassium 3.5 mmol/L (3.5-5.1); Sodium 137 mmol/L (135-145); eGFR > 60.00
--- NOTE | 2024-08-01 06:10 | W.PN.ORTHO ---
Today's Communication / Plan
-
Appreciate the hospitalist team, continue treatment
Dispo likely SNF, appreciate CM
X-ray of right hip ordered this morning. Right lower extremity internally rotated. Discomfort with gentle logroll. No obvious leg length discrepancy.
Update: X-ray negative for dislocation. Recommending abductor pillow while in bed. Order placed.
Continue WBAT B/L LEs on walker/assistance.
Hgb this AM 10.0. Continue to monitor and trend.
PT/OT, THPs x 6 weeks
ASA 325mg daily 4 weeks
Avoid narcotic induced delirium
Dressing to remain 7-10 days
[place] out at 2 weeks (office of SNF)
If bib out at SNF outpatient Ortho follow up 4 weeks
Orthopedic surgery will sign off at this time. Please reengage with any further questions or concerns.
Assessment
.
Distal Motor Intact: Yes
Dressing:
Aquacel dressing beginning to fall off. A new Aquacel dressing was placed. Incision clean, dry, intact. Bib intact. Patient's right lower extremity internally rotated.
Assessment:
POD 2 Right Hip Alberto 07/30 [facility].
Plan
.
Surgery / Date: Right hip Alberto/Aug 13 ([facility])
DVT Prophylaxis: Aspirin
Activity:
Out of bed.
PT/OT
Discharge Plan: Other
Discharge Information:
Appreciate CM, Likely SNF.
Subjective
.
.:
Patient resting comfortably in bed. Pillow was placed in between lower extremities yesterday evening by nursing staff due to patient hip rolling into internal rotation. Endorses discomfort with gentle logroll. Denies any paresthesias.
Vital Signs and Labs
.
Vital Signs and Labs:
Lab Results
08/01/24 04:19
08/01/24 04:19
Temp Pulse Resp BP Pulse Ox
98.8 F 126 18 118/74 98
07/31/24 23:08 07/31/24 23:08 07/31/24 23:08 07/31/24 23:08 07/31/24 23:44
[2024-08-01 07:00] VITALS: BP 122/66
--- NOTE | 2024-08-01 08:02 | PN.CDI ---
CDI
- -
CDI:
Physician Documentation Request
Admit Date: 07/28/24 21:21
Dear Doctor Morgan,
Patient admitted with fracture of the right femoral neck.
Please review the following and provide your response in the progress notes.
Clinical Indicators:
Height: 5' 5.5'
Weight: 106 lb
BMI: 17.4
Please provide an associated diagnosis related to the abnormal BMI, such as:
Underweight
Cachectic
Anorexia
BMI is not significant
Other
BMI < or = to 19
Underweight
Weight Loss
Cachectic
Anorexia
\\
Use of terms such as suspected, likely, concern for, or probable (associated with a specific diagnosis that is being evaluated, monitored, or treated as if it exists) are acceptable and can be coded in the inpatient setting, when documented at the
time of discharge.
Thank you,
Amara LOPEZ,RN,CCDS
CDI Specialist
Available via [place] text
Please use your independent medical judgment in providing your response.
[2024-08-01] MEDS: TORADOL 15 MG IV ×2 (08:41→15:15)
[2024-08-01] MEDS: TEGRETOL XR (EXTENDED RELEASE) 400 MG PO (08:43)
[2024-08-01] MEDS: ZOLOFT 50 MG PO (08:43)
[2024-08-01] MEDS: KEPPRA 1000 MG PO (08:43)
[2024-08-01] MEDS: ASPIRIN 325 MG PO (08:43)
[2024-08-01] MEDS: TYLENOL 650 MG PO ×3 (08:43→15:15)
[2024-08-01] MEDS: COZAAR 100 MG PO (08:43)
[2024-08-01] MEDS: COLACE PO (08:44)
[2024-08-01] MEDS: SENOKOT PO (08:47)
[2024-08-01 09:20] VITALS: BP 126/71; PULSE 95; O2SAT 99
--- NOTE | 2024-08-01 11:46 | PTOTSP ---
ST Follow-Up
Pt currently presents with clinical signs of mild oropharyngeal dysphagia characterized by prolonged mastication and bolus formation, reduced bolus formation, oral residue, and persistent grunting vs throat clearing both at baseline and with PO
intake that could be indicative of inadequate airway protection. Pt also presents with a lingual surface that is suspicious for oral thrush.
Education provided to pt's - pt is at an increased risk for aspiration due to dx of dementia, recent intubation, and possible s/s of airway invasion at bedside. Pt has accepted risks associated with PO intake and would like to allow pt to
eat for her comfort, as tube feeding is not in line with their goals of care.
Recommendations:
- Initiate PO diet of SOFT BITE SIZED SOLIDS with THIN LIQUIDS and meds crushed in puree.
- Aspiration precautions: Pt must be fully awake, alert, and upright for all PO intake; pt needs 1:1 assistance/encouragement for all PO intake; encourage pt to alternate solids/liquids; check for oral clearance.
- MD to consider tx for oral thrush.
- UNDERGROUND ELECTRICIAN to f/u briefly to ensure pt is tolerating recommended diet consistencies and to re-inforce aspiration precautions & compensatory strategies with staff and family.
[2024-08-01] MEDS: ROCEPHIN 1000 MG IV (12:25)
[2024-08-01] MEDS: MILK OF MAGNESIA 30 ML PO (12:25)
[2024-08-01] MEDS: STERILE WATER FOR INJECTION 10 ML IV (12:26)
--- NOTE | 2024-08-01 12:46 | CM ---
Addendum entered by Henna Polk 08/01/24 14:18:
1730 pickup
SNF alerted
Original Note:
CM reviewed pt with Dr Mora- ready for dc
Bed confirmed with Ann/Marcy
She is aware of ST recs- clinicals sent via [facility]
Bedside update with pt who is in agreement with plan
IMM verbally reviewed- copy provided
Call to spouse with update
Transport forms completed and on chart
Pt will require BLS transport
Discharge Disposition- [facility] via BLS
Phone- [phone] Fax- [phone]
--- NOTE | 2024-08-01 13:07 | W.PN.HOSP.TC ---
Addendum entered and electronically signed by Benjy Mora MD 08/01/24 13:42:
Add on list:
Stage 1 sacral pressure injury, POA
Underweight
Original Note:
Today's Communication/Plan
-
d/c snf rehab
Assessment / Plan
Assessment / Plan
Traumatic nondisplaced fracture of the right femoral neck with minor impaction, also associated with osteoporosis
s/p Right hip hemiarthroplasty
-Patient is POD # 2
-continue pain control
-PT/OT evaluated and appropriate for snf rehab
Dysphagia
-Discussed with speech and patient to be transition to soft bite-size food and thin liquid. Medication crushed in Puree
Hx of Seizures
-continue Keppra/Tegretol XR
-Reported episode of dysmetrias back in questionable episode few months back
-Follows up with Dr. Worthington
Essential HTN
- continue ARB
DVT ppx: SCDs
Code: DNR/DNI
07/31 Goal of care discussed with patient spouse regarding dysphagia. Discussed potential need of comfort feed with understanding aspiration risk. Not a good candidate for tube feed and patient mentioned spouse would not have wanted that anyhow.
Plan for patient to be reevaluated by speech therapy tomorrow to see if patient would able to tolerate food. Currently patient to be maintained nothing by mouth and IV fluid for hydration. Spouse in agreement.
Anticipated Discharge: Today
Subjective/Interval History
-
Date of Service: August 01, 2024
Patient remains pleasantly disoriented
Remains fidgety with things
No behavioral issues
Objective Data
-
Labs:
Laboratory Results
08/01/24
04:19
WBC 4.9
Hgb 10.0 L
Hct 28.9 L
Plt Count 151
Sodium 137
Potassium 3.5
Chloride 103
Carbon Dioxide 23
BUN 13
Creatinine 0.6
Glucose 100 H
Calcium 8.3 L
Vital Signs:
Vital Signs
Temp Pulse Resp BP Pulse Ox
98.3 F 99 18 122/66 98
08/01/24 07:00 08/01/24 08:43 08/01/24 07:00 08/01/24 08:43 08/01/24 08:00
I&O
07/31/24 08/01/24 08/02/24
06:59 06:59 06:59
Intake Total 820 / 820 1410 / 1410
Output Total 350 / 350 150 / 150 150 / 150
Balance 470 / 470 1260 / 1260 -150 / -150
Review of Systems
-
Unable to obtain full review of systems at this time due to: Dementia
Physical Exam
-
General: Comfortable
HEENT: Oxygen
Respiratory: Clear to Auscultation
Cardiac: Rub
GI: Soft, Nontender and Normal Bowel Sounds
Musculoskeletal: Other (Right hip dressing in place)
Neuro: Awake and No Motor Deficits; Negative Oriented
[2024-08-01 15:00] VITALS: BP 103/64
[2024-08-01] MEDS: D5LR IV (15:14)
--- NOTE | 2024-08-02 17:46 | W.DCSUMMARY ---
Discharge Summary
Discharge Data
Date of Admission: 07/28/24
Date of Discharge: 08/01/24
-
Pending Results: No
Hospital Course
Discharging Physician : Dr Benjy Mora
Disposition : To SNF rehab
Primary care physician : Dr Essie Ward
Principal Discharge diagnosis :
Right femoral neck fracture
Dysphagia
Chronic Discharge diagnosis :
History of seizure disorder
Dementia
Essential hypertension
Hyperlipidemia
Hospital Course :
Patient is a 74-year-old female with above-mentioned past medical history brought to ER for mechanical fall. Patient has dementia and not able to provide history, information gathered from patient spouse for whom patient had a fall in living room.
Questionable seizure episode was noted although no tongue bite/loss of bladder bowel function. Patient having significant pain afterward in the right hip and was brought in. In ER x-ray showing patient having right femoral/subcapital fracture.
Follow-up CT pelvis confirmed the finding. Other trauma workup with CT head/knee/humerus/elbow x-ray were negative for any other fractures. Orthopedic surgeries were consulted and patient was taken to the OR with getting an uneventful right hip
hemiarthroplasty. Postoperative patient was having difficulty with swallowing and speech therapy cleared patient for dysphagia diet. Goal of care discussion were held with the patient and spouse with understanding that patient have any recurrent
aspiration pneumonia/sepsis, patient will be appropriate for hospice care. At this point patient was discharged to long-term facility for rehab.
Important imaging findings :
None
Procedure findings :
None
Discharge Plan
-
Patient Disposition: Retirement/SNF
Discharge Diagnosis/Procedures: Right hip fracture, Dysphagia, Dementia
Condition: Fair
Additional Diets: IDDSI 6 soft/bite sized food and thin liquid
Activity: As tolerated and With Walker
Additional Activity: Right leg abductor pillow while in bed.
Driving Restrictions: No driving
Bathing Restrictions: OK to Shower
Activity Restrictions/Additional Instructions:
Dressing to remain 7-10 days
[place] out at 2 weeks (office of SNF)
Referrals:
Essie Ward DO [Family Provider] - in one week
Zafar Puente MD [Active] - in one month
Prescriptions:
New
aspirin 325 mg Tablet
325 mg PO DAILY Qty: 28 0RF
Rx Instructions:
Continue for 4 Weeks and THEN stop
docusate sodium 100 mg Capsule
100 mg PO BID Qty: 60 0RF
cefdinir 300 mg capsule
300 mg PO BID Qty: 6 0RF
Rx Instructions:
Last dose 08/03
acetaminophen [Tylenol Extra Strength] 500 mg tablet
1,000 mg PO Q8H PRN (Reason: Mild Mod pain) Qty: 30 0RF
ibuprofen 600 mg tablet
600 mg PO Q8H PRN (Reason: Sev pain) Qty: 20 0RF
Rx Instructions:
Do not continue for more than 5 days
Continued
losartan [Cozaar] 100 MG tablet
100 mg PO DAILY
carbamazepine [Tegretol XR] 400 MG tablet extended release 12 hr
400 mg PO BID Qty: 60 3RF
atorvastatin 20 mg Tablet
20 mg PO HS
sertraline 50 mg Tablet
50 mg PO DAILY
levetiracetam 1,000 mg Tablet
1,000 mg PO DAILY
levetiracetam 1,000 mg Tablet
1,500 mg PO HS
Discharge Orders:
Discharge Patient (As Directed); Ordered 08/01/24
Ordered By: Benjy Mora
Discharge Date and Time
Discharge Date/Time: 08/01/24 18:05
Print Language: SURINAMESE
== END 2024-08-01 18:05 | DRG 522 ==
LOC: 2 SOUTH 21:21
PROVIDERS: Internal Medicine; Nurse Practitioner Family; Physician Assistant; ADMITTING PHYSICIAN Internal Medicine; ATTENDING PHYSICIAN Hospitalist; CONSULT PHYSICIAN Orthopaedic Surgery; EMERGENCY PHYSICIAN Emergency Medicine; FAMILY PHYSICIAN Family Medicine
PROC: 0SRR0J9 Replacement of Right Hip Joint, Femoral Surface with Synthetic Substitute, Cemented, Open Approach (ICD-10-PCS; 2024-07-30)
DX: S72.001A Fracture of unspecified part of neck of right femur, initial encounter for closed fracture (principal); M80.051A Age-related osteoporosis with current pathological fracture, right femur, initial encounter for fracture; Z68.1 Body mass index [BMI] 19.9 or less, adult; F03.90 Unspecified dementia, unspecified severity, without behavioral disturbance, psychotic disturbance, mood disturbance, and anxiety; E78.00 Pure hypercholesterolemia, unspecified; W19.XXXA Unspecified fall, initial encounter; R25.1 Tremor, unspecified; Z86.718 Personal history of other venous thrombosis and embolism; I10 Essential (primary) hypertension; G40.909 Epilepsy, unspecified, not intractable, without status epilepticus; Z79.899 Other long term (current) drug therapy; Z66 Do not resuscitate; L89.151 Pressure ulcer of sacral region, stage 1; R63.6 Underweight; R13.10 Dysphagia, unspecified
CPT/HCPCS: 70450; 72125; 72170; 72192; 73060; 73080; 73501; 73502; 73552; 73564; 80048; 80053; 81003; 81015; 85025; 85027; 86850; 86900; 86901; 87086; 87088; 92526; 92610; 93005; 97116; 97163; 97167; 97530; 97535; 99285; C1713; C1776